=== PATIENT | female | born 1995 | race Caucasian/White ===

== ENCOUNTER 2017-03-31 22:58 | Emergency (ER) | payer OTHER ==
[~2017-03-31] VITALS: Ht 162.6 cm; Wt 68.4 kg
[~2017-03-31 22:58] MED LIST: BCPILLS PO
[2017-03-31 23:03] VITALS: TEMP 36.6; Ht 162.6 cm; Wt 68.4 kg
[2017-03-31] MEDS ORDERED: CEFTRIAXONE SOD INJ 1 GM ADDVIAL IV STA (23:46)
[2017-04-01] MEDS ORDERED: SEPTRA DS HOME PACK 1 EA VIAL PO ONE
[2017-04-01] MEDS ORDERED: CEPHALEXIN 500MG HOME PACK 1 EA BTL PO ONE
[2017-04-01 01:03] VITALS: BP 115/75; PULSE 80; O2SAT 95
[2017-04-01] MEDS ORDERED: CEPH500C PO (01:05)
[2017-04-01] MEDS ORDERED: SULF800T23 PO (01:05)
--- NOTE | 2017-04-01 03:45 | EMERGENCY ROOM VISIT NOTE ---
History Report prepared by Dustin: Pattie Wills Under the Supervision of: Dr. Dalton Guevara M.D. First contact with patient: 23:32 Chief Complaint: WOUND INFECTION Stated Complaint: INFECTION IN R ARM UNDER BRACE, BLISTERS,OOZING Nursing Triage Summary: pt states she scratched under a splint with a plastic knife, states "i thought i caused an infection but now i'm thinking it's a spider bite." reddened area with two small openings noted on right inner arm. pt states she was wearing a splint due to broken right hand. History of Present Illness The patient is a 21 year old female who presents to the Emergency Room with complaints of a persistent right arm wound infection that she first noticed on Thursday. She currently rates her discomfort as a 6/10 in severity. The patient reports that one week ago she broke her right hand and has been in a splint since then. She states that Thursday her arm felt itchy so she scratched the area with a plastic knife. The patient states that Thursday she took her splint off for a short amount of time and noticed two raised bumps with white heads on her forearm. She states that she attributed the areas to the brace rubbing. The patient states that today when she took her splint off she noticed yellow drainage and erythema to the area. Pt denies LOC, headache, fevers, chills, diaphoresis, visual changes, neck pain, chest pain, breathing difficulties, nausea, vomiting, abdominal pain, back pain, melena, hematochezia, urinary symptoms, numbness, weakness, lymphadenopathy, or other complaints. Source of History: patient Onset: Thursday Position: arm (right) Symptom Intensity: 6/10 Quality: other (wound infection) Timing: other (persistent) Note: Associated Symptoms: yellow drainage, erythema to area Review of Systems See HPI for pertinent positives and negatives. A total of ten systems were reviewed and were otherwise negative. Past Medical & Surgical Medical Problems: (1) No Known Active Medical Problems Family History Patient reports no known family medical history. Social History Smoking Status: Never Smoker Alcohol Use: none Marital Status: single Housing Status: lives with family Occupation Status: student Current/Historical Medications Scheduled Control Pills ( Control Pills), 1 TAB PO DAILY Cephalexin Monohydrate (Keflex), 500 MG PO QID Sulfa/Trimethoprim (Bactrim Ds 800MG/160MG), 1 TAB PO BID Allergies Coded Allergies: No Known Allergies (Unverified , 03/31/17) Physical Exam Vital Signs Date Time Temp Pulse Resp B/P (MAP) Pulse Ox O2 Delivery O2 Flow Rate FiO2 04/01/17 01:03 80 18 115/75 95 Room Air 03/31/17 23:03 36.6 82 20 135/81 100 Room Air Physical Exam GENERAL: Awake, alert, well-appearing, in no distress HENT: Normocephalic, atraumatic. Oropharynx unremarkable. EYES: Normal conjunctiva. Sclera non-icteric. NECK: Supple. No nuchal rigidity. FROM. No JVD. RESPIRATORY: Clear to auscultation. CARDIAC: Regular rate, normal rhythm. Extremities warm and well perfused. Pulses equal. MUSCULOSKELETAL: Chest examination reveals no tenderness. The back is symmetrical on inspection without obvious abnormality. There is no CVA tenderness to palpation. No joint edema. LOWER EXTREMITIES: Right upper extremity has an erythematous area to the mid forearm with two small ulcerations with some cloudy yellow drainage present. No Crepitus, no fluctuance, some streaking up toward antecubital fossa. NEURO: Normal sensorium. No sensory or motor deficits noted. SKIN: No rash or jaundice noted. Medical Decision & Procedures Medications Administered Medications (Trade) Dose Ordered Sig/Daivd Route Start Time Stop Time Status Last Admin Dose Admin Ceftriaxone Sodium (Rocephin Inj) 1 gm NOW STAT IV 03/31/17 23:46 03/31/17 23:48 DC 03/31/17 23:55 1 GM Cephalexin Monohydrate (Keflex 500MG Home Pack) 1 homepack NOW ONCE PO 04/01/17 00:00 04/01/17 00:01 DC 04/01/17 01:17 1 HOMEPACK Trimethoprim/ Sulfamethoxazole (Sulfameth/ Trimeth Ds 800/ 160MG Home Pack) 1 homepack UD ONCE PO 04/01/17 00:00 04/01/17 00:01 DC 04/01/17 01:17 1 HOMEPACK ED Course 2341: The patient was evaluated in room A4B. A complete history and physical exam was performed. 2346: Ordered Rocephin Inj 1 gm IV. 0000: Ordered Trimethoprim/Sulfamethoxazole 1 homepack PO, Cephalexin Monohydrate 1 homepack PO. 0111: I reevaluated the patient and she is resting comfortably. I discussed the exam findings with her and I discussed the treatment plan. She verbalized complete understanding and agreement. She is ready to go home. Medical Decision Medication Reconciliation: I attest that I have personally reviewed the patient' s current medication list Prior records reviewed and summarized as above. Triage Nursing notes reviewed and agree them. Additional history obtained from the patient's friend. The patient's history was concerning for swelling and redness of the skin. Differential diagnosis: Etiologies such as cellulitis, necrotizing fasciitis, abscess, MRSA infection, dermatitis, drug eruption, as well as others were entertained.. Physical examination: The physical examination was consistent with cellulitis ER treatment provided: IV Rocephin bacitracin and bandage On reassessment the patient felt better. Diagnostics interpreted by me: Deferred This appears to be isolated cellulitis. Wound culture was sent. The patient will be treated with Bactrim and Keflex. If she worsens she will come back.I gave my usual and customary discussion regarding this issue. By the evaluation outlined above emergent etiologies such as abscess, necrotizing fasciitis, DVT, as well as others were deemed relatively unlikely. The patient was informed about the findings as listed above. All questions were answered and she was pleased with the treatment. Return instructions were outlined and the patient was discharged in stable condition. Outpatient prescription management: Bactrim and Keflex Referral: The patient was referred back to her primary care physician for follow-up in 2 to 3 days for a recheck of the current condition. Impression Primary Impression: Cellulitis Scribe Attestation The scribe's documentation has been prepared under my direction and personally reviewed by me in its entirety. I confirm that the note above accurately reflects all work, treatment, procedures, and medical decision making performed by me. Departure Information Dispostion Home / Self-Care Prescriptions Sulfa/Trimethoprim (Bactrim Ds 800MG/160MG) Tab 1 TAB PO BID, #18 TAB Prov: Dalton Guevara MD 04/01/17 Cephalexin Monohydrate (Keflex) 500 Mg Cap 500 MG PO QID, #36 CAP Prov: Dalton Guevara MD 04/01/17 Referrals No Doctor, Assigned (PCP) Patient Instructions [facility]
== END 2017-04-01 01:19 | disposition home or self-care (01) ==
LOC: C.EDB 22:59 → C.EDA 04-01 01:19
DX: L03.113 Cellulitis of right upper limb (principal); S62.91XD Unspecified fracture of right hand, subsequent encounter for fracture with routine healing; X58.XXXD Exposure to other specified factors, subsequent encounter; Z79.3 Long term (current) use of hormonal contraceptives

== ENCOUNTER 2021-07-11 08:00 | Inpatient (IN) ==
[2021-07-11] MEDS ORDERED: OXYTOCIN 30 UNITS/500 ML BAG IV PRN ×2 (08:33)
[2021-07-11 09:02] LABS: Hematocrit (blood only) 38.6 % (37-47); Hemoglobin 13.3 g/dL (12.0-16.0); Mean Corpuscular Hemoglobin 31.1 pg (25-34); Mean Corpuscular Hgb Conc 34.5 g/dL (32-36); Mean Corpuscular Volume 90.2 fL (80-100); Mean Platelet Volume 11.4 fL (7.4-10.4); Platelet Count 218 K/uL (130-400); RDW Coefficient of Variation 13.1 % (11.5-14.5); RDW Standard Deviation 42.8 fL (36.4-46.3); Red Blood Count 4.28 M/uL (4.2-5.4); White Blood Count 11.43 K/uL (4.8-10.8)
[2021-07-11] MEDS: LACTATED RINGER'S 1,000 ML IV PRN ×3 (10:35→21:16)
--- NOTE | 2021-07-11 14:20 | History & Physical Report ---
Date of Service July 11, 2021 Assessment & Plan (1) Encounter for induction of labor: Plan: 26 at 40.4 wga here for scheduled induction -admit to L&D -IVFs (LR at 125 mls/hr; Pitocin at 20 units/hr) -NPO -pain controlled on epidural -GBS-/RI/Rh+ -anticipate (2) Supervision of normal first : Admission and Anticipated Discharge Date Admission Date: July 11, 2021 History of Present Illness Primary Care Provider: Darleen Du MD Geno Guajardo is a 26 y/o female currently at 40.4 WGA with an FITZ 07/07/21 as determined by Ultrasound who is here for induction. + contractions; + movement; - fluid loss; - bloody show. + epidural. ROS otherwise negative. Had regular appointments with OB. Labs: (07/11/21) Blood type: A positive Antibody screen: negative H.3 (today) Hct: 38.6 (today) WBC: 11.43 (today) Plt: 218 (today) Rubella: immune RPR: nonreactive Gonorrhea: not detected Chlamydia: not detected HIV: negative HbSAg: negative GBS: negative Allergies Allergy/AdvReac Type Severity Reaction Status Date / Time No Known Allergies Allergy Mild Verified 07/09/21 13:13 Home Medications Medication Instructions Recorded Confirmed Type prenat.vits,isidoro,[id number] 1 tab PO DAILY 11/12/20 07/11/21 History Patient History Medical History (Updated 07/11/21 @ 14:52 by Stevie Al MD) Cellulitis Finger laceration Finger laceration Varicella vaccination Work related injury Surgical History (Updated 11/12/20 @ 09:55 by Bria Puente) S/P loop electrosurgical excision procedure Family History Grandfather (Maternal) Myocardial infarction Grandmother (Paternal) Gestational diabetes Denies family history of Ovarian cancer Breast cancer Colorectal cancer Social History (Updated 03/12/21 @ 15:00 by Abigail Gunter) Smoking Status: Never smoker Hx Alcohol Use: No Hx Substance Use: No Preferred Language: Dominican Visual Impairment: No Limitations Hearing Ability: Normal Show Design Supervisor Required: No Beliefs That Will Affect Care: None marital status: marital status details: Burke Guajardo (28) [phone] Current Living Situation: Spouse Current Living Situation Comment: lives with spouse, 2 dogs current occupational status: employed 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 No acute distress. +epidural Cardiac: Regular rate and rhythm, no murmurs/rubs/gallops. Respiratory: Clear to auscultation bilaterally a/p, no wheezes/rales/rhonchi. No increased work of breathing. Symmetrical chest rise. No respiratory distress. Pelvic: Dilation 2 cm; Effacement 100%; Station -[address] Jacob. Lower Extremities: No lower extremity edema or swelling. No deep calf pain. Annabel's negative bilaterally Baseline: 145 bpm Variability: moderate Accelerations: yes Decelerations: none Results & Data ([facility]) Vital Signs (Past 12 Hours) Vital Signs Temp Pulse Resp BP 07/11/21 13:36 88 120/64 07/11/21 12:36 90 131/83 07/11/21 10:36 81 133/81 07/11/21 09:31 36.7 C 19 07/11/21 08:10 36.7 C 90 19 139/84 Code Status & VTE Plan VTE Prophylaxis Plan VTE Prophylaxis will be ordered: Yes Resident Activity Tracking Resident Involvement: Resident Care Provided Care Provided: OB Delivery
[2021-07-11] MEDS ORDERED: Influenza Vaccine (Fluarix) 0.5 ML SYR (Standard Dose) IM ONE (14:30)
--- NOTE | 2021-07-11 14:46 | Procedure Note ---
Procedure Note Date of Service July 11, 2021 Note Delayed documentation from 0900 this morning: monitoring was used to ensure reassuring status. The patient was verbally consented for placement of a black for cervical ripening, with discussion of risks, benefits and alternatives. All her questions were answered. Her legs were placed in lithotomy position. A lubricated, gloved hand was used to examine the cervix. A stylet was lubricated and inserted into a black catheter to give it stiffness, and the black catheter was then advanced along my fingers until it reached the external cervical os. The black was then fed forward off of the stylet, which was itself never moved beyond the external os, such that the soft catheter advanced into the uterine cavity outside of the amnion until the balloon was definitely above the internal cervical os. The balloon was then inflated using sterile water to 30cc volume. Gentle traction was used to seat the balloon downward against the internal cervical os. My hand and the stylet were removed from the vagina, and the black was secured to the patient's leg with a standard black holding sticker. There was no significant bleeding or leakage of fluid. The heart tones remained reassuring after this process, which the patient tolerated well. Coding CPT Codes Misx Procedure Codes - 29614 Placement of cervical dilator: 48332 Placement of cervical dilator ([id number]) [facility] [place] Codes (Charges) Misx Procedure Codes 59879 Placement of cervical dilator
[2021-07-11] MEDS ORDERED: fentaNYL citrate 100 MCG/2 ML VIAL ONE (15:12)
[2021-07-11] MEDS ORDERED: ePHEDrine sulfate 50 MG/ML AMP ONE (15:12)
[2021-07-11] MEDS ORDERED: SODIUM CHLORIDE 0.9% INJ 10 ML VIAL ONE (15:12)
[2021-07-11] MEDS ORDERED: BUPIVACAINE 0.25% 30 ML VIAL ONE (15:12)
[2021-07-11] MEDS ORDERED: fentaNYL 2MCG/ML ROPIVACAINE 1.25MG/ML 100 ML BAG EPI ONE (15:13)
--- NOTE | 2021-07-11 15:27 | Anesthesiology Consultation ---
Date of Service July 11, 2021 Assessment & Plan (1) Encounter for pre-operative examination: Chart Review Chart Review: Acceptable Risk for Labor Epidural Consults Requested none ASA ASA2 Proposed Anesthesia Anesthesia Type: Labor Epidural Risk / Benefits Reviewed With: PT / POA / Parent / Guardian, Accepts Plan and Informed Consent Obtained History Height/Weight Height: 5 ft 4 in Weight: 81.478 kg Allergies Allergy/AdvReac Type Severity Reaction Status Date / Time No Known Allergies Allergy Mild Verified 07/09/21 13:13 Medications Home Medications Medication Instructions Recorded Confirmed Last Taken prenat.vits,isidoro,[id number] 1 tab PO DAILY 11/12/20 07/11/21 07/11/21 06:00 Active Medications Generic Name Dose Route Start Last Admin Trade Name Freq PRN Reason Stop Dose Admin Oxytocin 30 units in 500 mls @ 7 mls/hr 07/11/21 08:33 07/11/21 13:49 Pitocin IV 07/13/21 08:32 0.42 units/hr .Q24H PRN 7 mls/hr Labor Induction/Augmentation Titration Protocol 0.42 UNITS/HR Lactated Ringer's 1,000 mls @ 125 mls/hr 07/11/21 08:33 07/11/21 14:59 Lr IV 07/13/21 08:32 125 mls/hr .Q8H PRN Administration L&D Protocol Protocol Past Medical History Medical History Cellulitis Finger laceration Finger laceration Varicella vaccination Work related injury Exercise / Class Metabolic Activity II 4-5 Yardwork/Stairs/Walk up hill Past Family History Family History Grandfather (Maternal) Myocardial infarction Grandmother (Paternal) Gestational diabetes Denies family history of Ovarian cancer Breast cancer Colorectal cancer Past Surgical History Surgical History S/P loop electrosurgical excision procedure Past Anesthesia History No Hx of Anesthesia Complications and No Family Hx of Anesthesia Complications History of PONV No Hx of PONV and No Hx of Motion Sickness Social History Smoking Status: Never smoker Hx Alcohol Use: No Hx Substance Use: No Physical Exam Vital Signs Last Vital Signs Temp 98.1 F 07/11/21 09:31 Pulse 93 H 07/11/21 15:18 Resp 19 07/11/21 09:31 BP 120/64 07/11/21 13:36 Pulse Ox 97 07/11/21 15:18 ENMT Mouth: no dentition abnormality Thyromental Distance: > or= 3.5 Finger Breadths Mallampati Class: II Neck normal visual inspection Respiratory normal respiratory effort Auscultation: lungs clear to auscultation bilaterally Cardiovascular Rate/Rhythm: regular rate and regular rhythm Testing Laboratory Results 07/11/21 08:46
[2021-07-11] MEDS ORDERED: NALOXONE HCL 1 MG in SODIUM CHLORIDE 0.9% 1000ML 1,000 ML IV PRN (15:49)
[2021-07-11] MEDS ORDERED: diphenhydrAMINE 50 MG/ML VIAL IV PRN (15:49)
[2021-07-11] MEDS ORDERED: NALBUPHINE HCL INJ 10 MG/ML AMP IV PRN (15:49)
[2021-07-11] MEDS ORDERED: NALOXONE HCL 0.4 MG/1 ML VIAL/CARP IV PRN (15:49)
[2021-07-11] MEDS ORDERED: ONDANSETRON INJ 2 MG/ML 2 ML VIAL IV PRN (15:49)
[2021-07-11] MEDS ORDERED: fentaNYL 2MCG/ML ROPIVACAINE 1.25MG/ML 100 ML BAG EPI PRN (15:49)
[2021-07-11] MEDS ORDERED: ePHEDrine sulfate 50 MG/ML AMP IV PRN (15:49)
--- NOTE | 2021-07-11 16:17 | Labor Progress Brief Note ---
Date of Service July 11, 2021 Subjective Comfortable with epidural Assessment & Plan Admission and Anticipated Discharge Date Admission Date: July 11, 2021 Physical Exam Physical Exam: 4/100/-2 AROM light mec FHT Cat 1 [place] Q3 Pit @ 9 Results & Data ([facility]) Vital Signs (Past 12 Hours) Vital Signs Temp Pulse Resp BP Pulse Ox 07/11/21 16:12 94 H 100 07/11/21 16:07 88 98 07/11/21 16:06 83 117/70 07/11/21 16:02 91 H 98 07/11/21 15:57 87 97 07/11/21 15:55 94 H 118/67 07/11/21 15:53 89 114/65 07/11/21 15:52 94 H 123/70 97 07/11/21 15:50 90 117/69 07/11/21 15:48 91 H 120/67 07/11/21 15:47 86 94 07/11/21 15:46 90 121/70 07/11/21 15:44 100 H 125/79 07/11/21 15:42 93 H 98 07/11/21 15:41 90 125/75 07/11/21 15:37 90 97 07/11/21 15:32 90 98 07/11/21 15:27 99 H 93 07/11/21 15:18 93 H 97 07/11/21 15:17 88 94 07/11/21 15:13 97 H 95 07/11/21 15:08 91 H 97 07/11/21 15:03 94 H 96 07/11/21 13:36 88 120/64 07/11/21 12:36 90 131/83 07/11/21 10:36 81 133/81 07/11/21 09:31 98.1 F 19 07/11/21 08:10 98.1 F 90 19 139/84 Coding Level of Care Code None
--- NOTE | 2021-07-11 20:19 | Labor Progress Brief Note ---
Date of Service July 11, 2021 Subjective Feeling a lot of pressure Assessment & Plan (1) Encounter for induction of labor: Plan: Intermittent cat 2 strip but currently reassuring / appropriate for transition, anticipate beginning second stage soon. Admission and Anticipated Discharge Date Admission Date: July 11, 2021 Physical Exam Physical Exam: Recent exam anterior lip per RN Monserrat. FHT cat 1 with early decels, other than a time when maternal hr was traced during exam and straight cath done by RN just recently. [place] Q3 Pit @ 9 Results & Data ([facility]) Vital Signs (Past 12 Hours) Vital Signs Temp Pulse Resp BP Pulse Ox 07/11/21 20:13 87 99 07/11/21 20:08 86 100 07/11/21 20:07 82 124/80 07/11/21 20:03 89 98 07/11/21 20:02 110 H 92 07/11/21 19:58 88 99 07/11/21 19:53 89 98 07/11/21 19:52 96 H 118/66 07/11/21 19:48 84 100 07/11/21 19:43 79 99 07/11/21 19:38 84 115/58 L 99 07/11/21 19:33 81 100 07/11/21 19:30 98.1 F 18 07/11/21 19:28 98.1 F 75 18 99 07/11/21 19:23 80 99 07/11/21 19:22 85 167/67 H 90 07/11/21 19:17 83 99 07/11/21 19:12 90 98 07/11/21 19:08 84 127/75 07/11/21 19:07 93 H 99 07/11/21 19:02 81 99 07/11/21 18:57 76 99 07/11/21 18:52 88 143/74 H 98 07/11/21 18:47 95 H 100 07/11/21 18:42 96 H 99 07/11/21 18:37 78 100 07/11/21 18:36 73 133/70 07/11/21 18:34 98.1 F 18 07/11/21 18:32 84 100 07/11/21 18:27 81 124/68 99 07/11/21 18:22 84 100 07/11/21 18:17 82 126/70 100 07/11/21 18:12 78 100 07/11/21 18:07 88 124/74 100 07/11/21 18:02 93 H 100 07/11/21 17:57 94 H 122/70 100 07/11/21 17:52 78 100 07/11/21 17:48 80 122/64 07/11/21 17:47 77 100 07/11/21 17:42 89 99 07/11/21 17:37 81 99 07/11/21 17:36 80 122/64 07/11/21 17:32 77 100 07/11/21 17:27 85 99 07/11/21 17:26 84 125/67 07/11/21 17:22 81 100 07/11/21 17:17 94 H 122/68 100 07/11/21 17:12 79 100 07/11/21 17:07 80 100 07/11/21 17:06 78 127/68 07/11/21 17:02 88 99 07/11/21 16:57 86 100 07/11/21 16:56 87 119/72 07/11/21 16:52 84 100 07/11/21 16:47 89 122/72 100 07/11/21 16:42 84 100 07/11/21 16:37 80 100 07/11/21 16:36 85 125/69 07/11/21 16:32 79 100 07/11/21 16:27 81 100 07/11/21 16:26 79 127/72 07/11/21 16:22 78 100 07/11/21 16:17 82 99 07/11/21 16:16 75 131/72 07/11/21 16:15 98.1 F 19 07/11/21 16:12 94 H 100 07/11/21 16:07 88 98 07/11/21 16:06 83 117/70 07/11/21 16:02 91 H 98 07/11/21 15:57 87 97 07/11/21 15:55 94 H 118/67 07/11/21 15:53 89 114/65 07/11/21 15:52 94 H 123/70 97 07/11/21 15:50 90 117/69 07/11/21 15:48 91 H 120/67 07/11/21 15:47 86 94 07/11/21 15:46 90 121/70 07/11/21 15:44 100 H 125/79 07/11/21 15:42 93 H 98 07/11/21 15:41 90 125/75 07/11/21 15:37 90 97 07/11/21 15:32 90 98 07/11/21 15:27 99 H 93 07/11/21 15:18 93 H 97 07/11/21 15:17 88 94 07/11/21 15:13 97 H 95 07/11/21 15:08 91 H 97 07/11/21 15:03 94 H 96 07/11/21 13:36 88 120/64 07/11/21 12:36 90 131/83 07/11/21 10:36 81 133/81 07/11/21 09:31 98.1 F 19 Coding Level of Care Code None Diagnoses Encounter for induction of labor Z34.90
--- NOTE | 2021-07-11 22:48 | Delivery Summary ---
Vaginal Delivery Summary Date of Service July 11, 2021 Vaginal Delivery Summary DIAGNOSES: 1. Amaro intrauterine at 40w4d gestation. 2. Induction of Labor. 3. Group B Streptococcus Neg. PROCEDURE: Spontaneous vaginal delivery and repair of left labial laceration. SURGEON: Shanice Jacob MD. SPECIAL EDUCATION CASE MANAGER: None. ESTIMATED BLOOD LOSS: 350 mL. COMPLICATIONS: None. PLACENTA: Spontaneous and intact with a 3-vessel cord. DISPOSITION: Stable to labor and delivery. DESCRIPTION: The patient pushed well and brought the head to in DOA position. The 's head was allowed to deliver with contraction force and no further active pushing, with the perineum protected during this time. There was no nuchal cord. The left shoulder was anterior. The shoulders and body delivered without any difficulty, and the was placed on the maternal abdomen. It was not immediately vigorous and the parents were informed it would be taken to the warmer for resuscitation; the cord was doubly clamped by the MD and then quickly cut by the FOB, and the baby was moved directly to the warmer. The placenta delivered spontaneously and was noted to be intact and with a 3VC. The cervix, vagina and perineum were examined and were found to be without defect requiring repair, though a laceration was noted to the left side of the clitoris extending into the left labium minus ending near (but not in) the urethral meatus. It was hemostatic but for cosmetic reasons needed to be reapproximated. This was closed using 3-0 vicryl in a running locked manner. The fundus was firm and lochia minimal immediately after delivery. [facility] Vaginal Delivery Charge Vaginal Delivery Codes: 67370 global code for the antepartum, delivery, and post-
[2021-07-11] MEDS ORDERED: DIPHTHERIA/TETANUS/PERTUSSIS 0.5 ML SYR/VIAL IM ONE (23:00)
[2021-07-11] MEDS ORDERED: HYDROCORTISONE ACETATE 25 MG SUPP PR PRN (23:00)
[2021-07-11] MEDS ORDERED: BENZOCAINE 20% AER SPR 82.5 GM CAN EXT PRN (23:00)
[2021-07-11] MEDS ORDERED: oxyCODONE/ACETAMINOPHEN 5mg/325mg TAB PO PRN (23:00)
[2021-07-11] MEDS ORDERED: SUPERCREAM 0.870% 15 GM JAR EXT PRN (23:00)
[2021-07-11] MEDS ORDERED: ACETAMINOPHEN 325 MG TAB PO PRN (23:00)
[2021-07-12] MEDS: IBUPROFEN 600 MG TAB PO PRN ×5 (00:01→21:15)
--- NOTE | 2021-07-12 06:23 | Obstetrical Progress Note ---
Date of Service <Stevie Al MD - Last Filed: 07/12/21 07:13> July 12, 2021 Assessment & Plan <Stevie Al MD - Last Filed: 07/12/21 07:13> (1) Encounter for care and examination after delivery: PPD1: stable; routine management * ambulating, voiding w/o difficulty * tolerating regular diet * likely increased pain control requirement today * continue attempt at * observe today; assess d/c readiness tomorrow AM <Shanice Jacob MD - Last Filed: 07/12/21 07:13> (1) Encounter for care and examination after delivery: Subjective <Stevie Al MD - Last Filed: 07/12/21 07:13> Geno is a 26 y/o female who is now PPD 1 following spontaneous vaginal delivery at 40+ weeks. Reports feeling well overall this morning. Minimal abdominal cramping & 0/10 this AM. Voiding +. Tolerating meals well and able to ambulate some. + passing gas but no bowel movements. Some persistent lochia (2 filled pads overnight) with improvement this morning. . Review of Systems Denies fever, chills, sweats Denies shortness of breath, difficulty breathing, chest pain, palpitations, chest pressure. Denies breast pain. Denies dysuria. Denies headache or changes in vision Physical Exam <Stevie Al MD - Last Filed: 07/12/21 07:13> General: Alert, oriented. No acute distress. Cardiac: Regular rate and rhythm, no murmurs/rubs/gallops. Respiratory: Clear to auscultation bilaterally a/p, no wheezes/rales/rhonchi. No increased work of breathing. Symmetrical chest rise. No respiratory distress. Abdomen: Soft, nontender, nondistended. Bowel sounds present. Uterus: Uterine fundus firm, palpable 1 cm below umbilicus. Lower Extremities: No lower extremity edema or swelling. No deep calf pain. Annabel's negative bilaterally.. Results & Data ([facility]) <Stevie Al MD - Last Filed: 07/12/21 07:13> Vital Signs (Past 12 Hours) Vital Signs Temp Pulse Pulse Resp BP BP Pulse Ox 07/12/21 05:00 36.6 C 79 18 115/72 07/12/21 01:30 36.6 C 84 18 127/78 07/12/21 00:50 89 126/72 07/12/21 00:45 18 07/12/21 00:35 87 127/73 07/12/21 00:20 95 H 141/82 H 07/12/21 00:15 18 07/12/21 00:05 85 135/68 07/11/21 23:50 87 136/66 07/11/21 23:35 92 H 137/62 07/11/21 23:17 105 H 134/84 07/11/21 23:15 18 07/11/21 23:01 100 H 131/76 07/11/21 23:00 18 07/11/21 22:46 97 H 135/68 07/11/21 22:45 36.9 C 18 07/11/21 22:40 103 H 94 07/11/21 22:37 100 H 134/60 07/11/21 22:36 99 H 94 07/11/21 22:34 94 H 93 07/11/21 22:31 116 H 95 07/11/21 22:26 120 H 95 07/11/21 22:13 137 H 94 07/11/21 22:12 135 H 93 07/11/21 22:08 139 H 94 07/11/21 22:07 115 H 124/61 94 07/11/21 22:03 122 H 96 07/11/21 21:58 129 H 92 07/11/21 21:56 117 H 93 07/11/21 21:53 120 H 96 07/11/21 21:52 125 H 127/64 07/11/21 21:51 120 H 92 07/11/21 21:48 115 H 83 L 07/11/21 21:44 112 H 91 07/11/21 21:43 112 H 97 07/11/21 21:38 133 H 96 07/11/21 21:33 103 H 97 07/11/21 21:28 123 H 97 07/11/21 21:23 129 H 99 07/11/21 21:18 80 98 07/11/21 21:13 84 99 07/11/21 21:08 79 99 07/11/21 21:07 87 132/87 07/11/21 21:03 84 99 07/11/21 21:00 18 07/11/21 20:58 81 98 07/11/21 20:53 78 135/80 99 07/11/21 20:48 79 100 07/11/21 20:43 84 99 07/11/21 20:38 79 114/56 L 99 07/11/21 20:33 84 100 07/11/21 20:30 18 07/11/21 20:28 79 100 07/11/21 20:23 81 100 07/11/21 20:22 81 123/66 07/11/21 20:18 82 100 07/11/21 20:14 92 H 90 07/11/21 20:13 87 99 07/11/21 20:08 86 100 07/11/21 20:07 82 124/80 07/11/21 20:03 89 98 07/11/21 20:02 110 H 92 07/11/21 20:00 18 07/11/21 19:58 88 99 07/11/21 19:53 89 98 07/11/21 19:52 96 H 118/66 07/11/21 19:48 84 100 07/11/21 19:43 79 99 07/11/21 19:38 84 115/58 L 99 07/11/21 19:33 81 100 07/11/21 19:30 36.7 C 18 07/11/21 19:28 36.7 C 75 18 99 07/11/21 19:23 80 99 07/11/21 19:22 85 167/67 H 90 07/11/21 19:17 83 99 07/11/21 19:12 90 98 07/11/21 19:08 84 127/75 07/11/21 19:07 93 H 99 07/11/21 19:02 81 99 07/11/21 18:57 76 99 07/11/21 18:52 88 143/74 H 98 07/11/21 18:47 95 H 100 07/11/21 18:42 96 H 99 07/11/21 18:37 78 100 07/11/21 18:36 73 133/70 07/11/21 18:34 36.7 C 18 07/11/21 18:32 84 100 07/11/21 18:27 81 124/68 99 10/14/21 18:22 84 100 07/11/21 18:17 82 126/70 100 <Shanice Jacob MD - Last Filed: 07/12/21 07:13> Co-Signing Physician Notes Resident Physician Supervision Note: I interviewed and examined the patient. Discussed with Dr. Al and agree with findings and plan as documented in the note. Any exceptions or clarifications are listed here: None Documented By: Shanice Jacob MD, FACOG Resident Activity Tracking <Stevie Al MD - Last Filed: 07/12/21 07:13> Resident Involvement: Resident Care Provided Care Provided: OB Delivery
[2021-07-12 07:15] LABS: Hematocrit (blood only) 35.3 % (37-47); Mean Corpuscular Hemoglobin 30.8 pg (25-34); Mean Corpuscular Volume 90.5 fL (80-100); Mean Platelet Volume 11.1 fL (7.4-10.4); Platelet Count 199 K/uL (130-400); RDW Standard Deviation 42.7 fL (36.4-46.3); White Blood Count 16.39 K/uL (4.8-10.8)
[2021-07-12] MEDS: PRENATAL VITAMIN 1 TAB PO SCH (08:38)
[2021-07-12] MEDS: DOCUSATE SODIUM 100 MG CAP PO SCH ×2 (08:38→21:15)
[2021-07-12] MEDS ORDERED: FLUARIX QUADRIVALENT 0.5 ML SYR IM ONE (09:00)
--- NOTE | 2021-07-12 09:05 | Anesthesiology Progress Note ---
Date of Service July 12, 2021 Anesthesia Post Procedure Vital Signs Vital Signs: Temp Pulse Pulse Resp BP BP Pulse Ox 07/12/21 08:11 36.8 C 81 20 122/78 99 07/12/21 05:00 36.6 C 79 18 115/72 07/12/21 01:30 36.6 C 84 18 127/78 07/12/21 00:50 89 126/72 07/12/21 00:45 18 07/12/21 00:35 87 127/73 07/12/21 00:20 95 H 141/82 H 07/12/21 00:15 18 07/12/21 00:05 85 135/68 07/11/21 23:50 87 136/66 07/11/21 23:35 92 H 137/62 07/11/21 23:17 105 H 134/84 07/11/21 23:15 18 07/11/21 23:01 100 H 131/76 07/11/21 23:00 18 07/11/21 22:46 97 H 135/68 07/11/21 22:45 36.9 C 18 07/11/21 22:40 103 H 94 07/11/21 22:37 100 H 134/60 07/11/21 22:36 99 H 94 07/11/21 22:34 94 H 93 07/11/21 22:31 116 H 95 07/11/21 22:26 120 H 95 07/11/21 22:13 137 H 94 07/11/21 22:12 135 H 93 07/11/21 22:08 139 H 94 07/11/21 22:07 115 H 124/61 94 07/11/21 22:03 122 H 96 07/11/21 21:58 129 H 92 07/11/21 21:56 117 H 93 07/11/21 21:53 120 H 96 07/11/21 21:52 125 H 127/64 07/11/21 21:51 120 H 92 07/11/21 21:48 115 H 83 L 07/11/21 21:44 112 H 91 07/11/21 21:43 112 H 97 07/11/21 21:38 133 H 96 07/11/21 21:33 103 H 97 07/11/21 21:28 123 H 97 07/11/21 21:23 129 H 99 07/11/21 21:18 80 98 07/11/21 21:13 84 99 07/11/21 21:08 79 99 07/11/21 21:07 87 132/87 07/11/21 21:03 84 99 07/11/21 21:00 18 07/11/21 20:58 81 98 07/11/21 20:53 78 135/80 99 07/11/21 20:48 79 100 07/11/21 20:43 84 99 07/11/21 20:38 79 114/56 L 99 07/11/21 20:33 84 100 07/11/21 20:30 18 07/11/21 20:28 79 100 07/11/21 20:23 81 100 07/11/21 20:22 81 123/66 07/11/21 20:18 82 100 07/11/21 20:14 92 H 90 07/11/21 20:13 87 99 07/11/21 20:08 86 100 07/11/21 20:07 82 124/80 07/11/21 20:03 89 98 07/11/21 20:02 110 H 92 07/11/21 20:00 18 07/11/21 19:58 88 99 07/11/21 19:53 89 98 07/11/21 19:52 96 H 118/66 07/11/21 19:48 84 100 07/11/21 19:43 79 99 07/11/21 19:38 84 115/58 L 99 07/11/21 19:33 81 100 07/11/21 19:30 36.7 C 18 07/11/21 19:28 36.7 C 75 18 99 07/11/21 19:23 80 99 07/11/21 19:22 85 167/67 H 90 07/11/21 19:17 83 99 07/11/21 19:12 90 98 07/11/21 19:08 84 127/75 07/11/21 19:07 93 H 99 07/11/21 19:02 81 99 07/11/21 18:57 76 99 07/11/21 18:52 88 143/74 H 98 07/11/21 18:47 95 H 100 07/11/21 18:42 96 H 99 07/11/21 18:37 78 100 07/11/21 18:36 73 133/70 07/11/21 18:34 36.7 C 18 07/11/21 18:32 84 100 07/11/21 18:27 81 124/68 99 07/11/21 18:22 84 100 07/11/21 18:17 82 126/70 100 07/11/21 18:12 78 100 07/11/21 18:07 88 124/74 100 07/11/21 18:02 93 H 100 07/11/21 17:57 94 H 122/70 100 07/11/21 17:52 78 100 07/11/21 17:48 80 122/64 07/11/21 17:47 77 100 07/11/21 17:42 89 99 07/11/21 17:37 81 99 07/11/21 17:36 80 122/64 07/11/21 17:32 77 100 07/11/21 17:27 85 99 07/11/21 17:26 84 125/67 07/11/21 17:22 81 100 07/11/21 17:17 94 H 122/68 100 07/11/21 17:12 79 100 07/11/21 17:07 80 100 07/11/21 17:06 78 127/68 07/11/21 17:02 88 99 07/11/21 16:57 86 100 07/11/21 16:56 87 119/72 07/11/21 16:52 84 100 07/11/21 16:47 89 122/72 100 07/11/21 16:42 84 100 07/11/21 16:37 80 100 07/11/21 16:36 85 125/69 07/11/21 16:32 79 100 07/11/21 16:27 81 100 07/11/21 16:26 79 127/72 07/11/21 16:22 78 100 07/11/21 16:17 82 99 07/11/21 16:16 75 131/72 07/11/21 16:15 36.7 C 19 07/11/21 16:12 94 H 100 07/11/21 16:07 88 98 07/11/21 16:06 83 117/70 07/11/21 16:02 91 H 98 07/11/21 15:57 87 97 07/11/21 15:55 94 H 118/67 07/11/21 15:53 89 114/65 07/11/21 15:52 94 H 123/70 97 07/11/21 15:50 90 117/69 07/11/21 15:48 91 H 120/67 07/11/21 15:47 86 94 07/11/21 15:46 90 121/70 07/11/21 15:44 100 H 125/79 07/11/21 15:42 93 H 98 07/11/21 15:41 90 125/75 07/11/21 15:37 90 97 07/11/21 15:32 90 98 07/11/21 15:27 99 H 93 07/11/21 15:18 93 H 97 07/11/21 15:17 88 94 07/11/21 15:13 97 H 95 07/11/21 15:08 91 H 97 07/11/21 15:03 94 H 96 07/11/21 13:36 88 120/64 07/11/21 12:36 90 131/83 07/11/21 10:36 81 133/81 07/11/21 09:31 36.7 C 19 Pain Intensity Bilateral Episiotomy/Laceration: Pain Intensity: 2 Transfer of Care Handoff Completed per policy Notes Mental Status: alert / awake / arousable and participated in evaluation Patient Amnestic to Procedure: Yes Nausea / Vomiting: adequately controlled Pain: adequately controlled Airway Patency, RR, SpO2: stable & adequate BP & HR: stable & adequate Hydration State: stable & adequate Anesthetic Complications: no major complications apparent and Pt Satisfied with anesthetic care
[2021-07-13 06:17] LABS: Hematocrit (blood only) 35.2 % (37-47); Hemoglobin 11.8 g/dL (12.0-16.0)
--- NOTE | 2021-07-13 07:18 | Obstetrical Progress Note ---
Date of Service <Stevie Al MD - Last Filed: 07/13/21 07:50> July 13, 2021 Assessment & Plan <Stevie Al MD - Last Filed: 07/13/21 07:50> (1) Encounter for care and examination after delivery: PPD1: stable; routine management * ambulating, voiding w/o difficulty * pain continues to be well controlled on analgesia * continue attempt at * d/c today * 6-wk OB outpt f/u <Monserrat Crocker MD, FACOG - Last Filed: 07/13/21 07:51> (1) Encounter for care and examination after delivery: Subjective <Stevie Al MD - Last Filed: 07/13/21 07:50> Geno is a 26 y/o female who is now PPD 2 following spontaneous vaginal delivery at 40 weeks. Was standing over baby, as she attempted to feed her with syringe. Pain well managed on analgesics. Voiding +. Tolerating meals well and able to ambulate some. Some lochia. (syringe). Review of Systems Denies fever, chills, sweats Denies shortness of breath, difficulty breathing, chest pain, palpitations, chest pressure. Denies breast pain. Denies dysuria. Denies headache or changes in vision Physical Exam <Stevie Al MD - Last Filed: 07/13/21 07:50> General: Alert, oriented. No acute distress. Cardiac: Regular rate and rhythm, no murmurs/rubs/gallops. Respiratory: Clear to auscultation bilaterally a/p, no wheezes/rales/rhonchi. No increased work of breathing. Symmetrical chest rise. No respiratory distress. Abdomen: Soft, nontender, nondistended. Bowel sounds present. Uterus: Uterine fundus firm, palpable 1 cm below umbilicus. Lower Extremities: No lower extremity edema or swelling. No deep calf pain. Annabel's negative bilaterally.. Results & Data ([facility]) <Stevei Al MD - Last Filed: 07/13/21 07:50> Vital Signs (Past 12 Hours) Vital Signs Temp Pulse Resp BP 07/12/21 23:45 36.9 C 71 18 113/72 07/12/21 19:50 36.8 C 90 18 115/71 <Monserrat Crocker MD, FACOG - Last Filed: 07/13/21 07:51> Co-Signing Physician Notes Resident Physician Supervision Note: I interviewed and examined the patient. Discussed with Dr. Hunter and agree with findings and plan as documented in the note. Any exceptions or clarifications are listed here: Doing well. Plan d/c. Instructions given. Documented By: Monserrat Crocker MD, FACOG Resident Activity Tracking <Steive Al MD - Last Filed: 07/13/21 07:50> Resident Involvement: Resident Care Provided Care Provided: OB Delivery
[2021-07-13] MEDS: IBUPROFEN 600 MG TAB PO PRN (08:51)
[2021-07-13] MEDS: PRENATAL VITAMIN 1 TAB PO SCH (08:52)
[2021-07-13] MEDS: DOCUSATE SODIUM 100 MG CAP PO SCH (08:52)
== END 2021-07-13 13:16 | disposition home or self-care (01) | DRG 807 ==
LOC: 4S1 08:00 → 4S2 07-12 01:36
DX: O48.0 Post-term pregnancy; Z3A.40 40 weeks gestation of pregnancy; Z23 Encounter for immunization; O77.0 Labor and delivery complicated by meconium in amniotic fluid; O76 Abnormality in fetal heart rate and rhythm complicating labor and delivery; Z37.0 Single live birth; O70.0 First degree perineal laceration during delivery

== ENCOUNTER 2024-05-30 07:30 | Inpatient (IN) ==
[2024-05-30] MEDS ORDERED: OXYTOCIN 30 UNITS/NSS 30 UNITS/500 ML BAG IV PRN (07:43)
[2024-05-30] MEDS ORDERED: LIDOCAINE 1% LOCAL 20 ML VIAL INFIL PRN (07:43)
[2024-05-30] MEDS: LACTATED RINGER'S 1,000 ML IV PRN (08:15)
[2024-05-30 08:18] LABS: Hematocrit (blood only) 34.4 % (37.0-47.0); Hemoglobin 11.9 g/dl (12.0-16.0); Mean Corpuscular Hemoglobin 30.9 pg (25.0-34.0); Mean Corpuscular Hgb Conc 34.6 g/dL (32.0-36.0); Mean Corpuscular Volume 89.4 fL (80.0-100.0); Mean Platelet Volume 10.6 fL (9.4-12.4); Platelet Count 171 K/uL (130-400); RDW Coefficient of Variation 13.2 % (11.5-14.5); Red Blood Count 3.85 M/uL (4.20-5.40); White Blood Count 8.88 K/ul (4.8-10.8)
[2024-05-30] MEDS: OXYTOCIN 30 UNITS/NSS 30 UNITS/500 ML BAG IV PRN ×2 (08:21→17:34)
[2024-05-30] MEDS: LIDOCAINE 2%/EPINEPHRINE 1:200,000 20 ML PF ONE (11:15)
[2024-05-30] MEDS: SODIUM CHLORIDE 0.9% PF INJ 10 ML VIAL ONE (11:15)
[2024-05-30] MEDS: BUPIVACAINE 0.25% PF 30 ML VIAL ONE (11:20)
[2024-05-30] MEDS: fentANYL 2 MCG/ML BUPIVacaine 0.125%-NSS 100ML BAG ONE (11:22)
[2024-05-30] MEDS ORDERED: ePHEDrine sulfate 50 MG/ML AMP IV PRN (11:35)
[2024-05-30] MEDS ORDERED: ROPIVACAINE 0.5% PF 5 MG/ML 20 ML VIAL EPI PRN (11:35)
[2024-05-30] MEDS ORDERED: fentANYL 2 MCG/ML BUPIVacaine 0.125%-NSS 100ML BAG EPI PRN (11:35)
[2024-05-30] MEDS ORDERED: BUPIVACAINE 0.25% PF 30 ML VIAL EPI PRN (11:35)
[2024-05-30] MEDS ORDERED: fentaNYL citrate PF 100 MCG/2 ML VIAL EPI PRN (11:35)
[2024-05-30] MEDS ORDERED: SODIUM CHLORIDE 0.9% PF INJ 10 ML VIAL EPI PRN (11:35)
[2024-05-30] MEDS ORDERED: ONDANSETRON INJ 2 MG/ML 2 ML VIAL IV PRN (11:35)
[2024-05-30] MEDS ORDERED: diphenhydrAMINE 50 MG/ML VIAL IV PRN (11:35)
[2024-05-30] MEDS: fentaNYL citrate PF 100 MCG/2 ML VIAL ONE (11:35)
[2024-05-30] MEDS ORDERED: NALBUPHINE HCL INJ 10 MG/ML AMP IV PRN (11:35)
[2024-05-30] MEDS ORDERED: NALOXONE HCL 0.4 MG/1 ML VIAL/CARP IV PRN (11:35)
[2024-05-30] MEDS ORDERED: NALOXONE HCL 1 MG in SODIUM CHLORIDE 0.9% 1,000 ML IV PRN (11:35)
[2024-05-30] MEDS ORDERED: LIDOCAINE 2% MPF LOCAL 5 ML VIAL EPI PRN (11:35)
--- NOTE | 2024-05-30 11:35 | Anesthesiology Consultation ---
Date of Service May 30, 2024 Assessment & Plan Chart Review Chart Review: Patient NOT seen in Pre Admission Testing and Acceptable Risk for Labor Epidural Consults Requested none ASA ASA2 Proposed Anesthesia Anesthesia Type: Labor Epidural Risk / Benefits Reviewed With: PT / POA / Parent / Guardian, Accepts Plan and Informed Consent Obtained History Height/Weight Height: 5 ft 4 in Weight: 79.492 kg Allergies Allergy/AdvReac Type Severity Reaction Status Date / Time No Known Allergies Allergy Mild Verified 05/27/24 10:31 Medications Home Medications Medication Instructions Recorded Confirmed Last Taken vits no.124-ferrous fum 1 tab PO DAILY 05/30/24 05/30/24 05/29/24 08:00 27 mg iron-folic acid 800 mcg tablet ( Vitamin) Active Medications Generic Name Dose Route Start Last Admin Trade Name Freq PRN Reason Stop Dose Admin Lactated Ringer's 1,000 mls @ 125 mls/hr 05/30/24 07:43 05/30/24 11:10 Lr IV 06/01/24 07:42 125 mls/hr .Q8H PRN Administration L&D Protocol Protocol Oxytocin 30 units in 500 mls @ 12 mls/hr 05/30/24 07:57 05/30/24 11:02 Pitocin 30 Units/Nss IV 06/01/24 07:56 0.72 units/hr .Q24H PRN 12 mls/hr Labor Induction/Augmentation Titration Protocol 0.72 UNITS/HR Past Medical History Medical History anxiety Encounter for pre-operative examination Varicella vaccination Work related injury Finger laceration Finger laceration Cellulitis Exercise / Class Metabolic Activity II 4-5 Yardwork/Stairs/Walk up hill Past Family History Family History Grandfather (Maternal) Myocardial infarction Grandmother (Paternal) Gestational diabetes Grandfather (Paternal) Prostate cancer Aunt Heart disease Uncle Heart disease Denies family history of Ovarian cancer Breast cancer Colorectal cancer Past Surgical History Surgical History S/P loop electrosurgical excision procedure Past Anesthesia History No Hx of Anesthesia Complications and No Family Hx of Anesthesia Complications History of PONV No Hx of PONV and No Hx of Motion Sickness Social History Smoking Status: Never smoker Do You Dip or Chew Tobacco: No Hx Alcohol Use: No Hx Substance Use: No substance use type: does not use Physical Exam Vital Signs Last Vital Signs Temp 37 C 05/30/24 11:08 Pulse 91 H 05/30/24 11:32 Resp 20 05/30/24 11:08 BP 101/63 05/30/24 11:32 Pulse Ox 100 05/30/24 11:28 ENMT Mouth: no dentition abnormality Thyromental Distance: > or= 3.5 Finger Breadths Mallampati Class: II Neck normal visual inspection Respiratory normal respiratory effort Auscultation: lungs clear to auscultation bilaterally Cardiovascular Rate/Rhythm: regular rate and regular rhythm Psychiatric Orientation: alert Testing Laboratory Results 05/30/24 07:56
--- NOTE | 2024-05-30 15:32 | History & Physical Report ---
Date of Service May 30, 2024 Assessment & Plan (1) Encounter for supervision of normal in multigravida: Plan: Geno is a 28-year-old G3, P1 currently at 40 weeks 1 day gestational age presents for elective induction of labor. Category 1 tracing. Start induction with Pitocin will AROM when appropriate. Vitals within normal limits. GBS negative Admission and Anticipated Discharge Date Admission Date: May 30, 2024 History of Present Illness Primary Care Provider: Darleen Du MD Geno is a 28-year-old G3, P1 currently at 40 weeks 1 day gestational age presents for elective induction of labor. has been uncomplicated to date. OB Labs: Blood Type A Positive 10/28/23 Antibody Screen NEGATIVE 10/28/23 Hemoglobin 11.6 g/dl (12.0-16.0) L 03/09/24 Hematocrit 33.9 % (37.0-47.0) L 03/09/24 Mean Corpuscular Volume 86.8 fL (80.0-100.0) 10/28/23 Platelet Count 295 K/uL (130-400) 10/28/23 Rubella IgG Antibody Immune (Immune) 10/28/23 Rapid Plasma Reagin Nonreactive (Nonreactive) 03/09/24 Hepatitis B Surface Antigen Neg (Neg) 11/19/20 Hepatitis B Surface Antigen. NON-REACTIVE (NON-REACTIVE) 10/28/23 Hepatitis C Antibody (EIA) NON-REACTIVE (NON-REACTIVE) 10/28/23 HIV (1&2) Ab and P24 Ag, 4th Gener Neg (Neg) 11/19/20 HIV (1&2) Ag and Ab Confirmation NON-REACTIVE (NON-REACTIVE) 10/28/23 Glucose 1 Hour 50 gm Load 171 mg/dl (70-130) H 03/09/24 Maternal Serum Alpha Fetoprotein 21.7 ng/mL 12/15/23 OB Optional Labs: Chlamydia trachomatis RNA Not Detected (NotDetected) 10/28/23 Neisseria gonorrhoeae RNA Not Detected (NotDetected) 10/28/23 Alpha Fetoprotein Triple Screen SEE NOTE 12/15/23 Labs Reviewed: declined cf/sma cfdna-low risk--mln neg afp--akh gbs neg--akh Allergies Allergy/AdvReac Type Severity Reaction Status Date / Time No Known Allergies Allergy Mild Verified 05/27/24 10:31 Home Medications Medication Instructions Recorded Confirmed Type vits no.124-ferrous fum 1 tab PO DAILY 05/30/24 05/30/24 History 27 mg iron-folic acid 800 mcg tablet ( Vitamin) Patient History Medical History anxiety Encounter for pre-operative examination Varicella vaccination Work related injury Finger laceration Finger laceration Cellulitis Surgical History S/P loop electrosurgical excision procedure Family History Grandfather (Maternal) Myocardial infarction Grandmother (Paternal) Gestational diabetes Grandfather (Paternal) Prostate cancer Aunt Heart disease Uncle Heart disease Denies family history of Ovarian cancer Breast cancer Colorectal cancer Social History (Updated 05/30/24 @ 07:46 by Bethanie Baez RN) Smoking Status: Never smoker Second Hand Exposure: No; Do You Dip or Chew Tobacco: No; Hx Alcohol Use: No Hx Substance Use: No Preferred Language: Indonesian Communication Ability: Effective Visual Impairment: No Limitations Hearing Ability: Normal Selling Manager Required: No Beliefs That Will Affect Care: None marital status: marital status details: Burke Guajardo (31) [phone] Current Living Situation: Spouse and Family Current Living Situation Comment: lives with spouse, child, 2 dogs current occupational status: employed 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 Tee Results & Data Vital Signs (Past 12 Hours) Vital Signs Temp Pulse Resp BP Pulse Ox 05/30/24 15:23 100 05/30/24 15:23 85 05/30/24 15:18 100 05/30/24 15:18 77 05/30/24 15:17 87 05/30/24 15:17 110/56 L 05/30/24 15:13 100 05/30/24 15:13 81 05/30/24 15:08 100 05/30/24 15:08 73 05/30/24 15:05 36.5 C 20 05/30/24 15:04 74 05/30/24 15:04 110/58 L 05/30/24 15:03 100 05/30/24 15:03 72 05/30/24 14:58 100 05/30/24 14:58 79 05/30/24 14:53 100 05/30/24 14:53 83 05/30/24 14:49 76 05/30/24 14:49 115/61 05/30/24 14:48 100 05/30/24 14:48 76 05/30/24 14:43 100 05/30/24 14:43 72 05/30/24 14:38 100 05/30/24 14:38 76 05/30/24 14:34 75 05/30/24 14:34 107/62 05/30/24 14:33 100 05/30/24 14:33 74 05/30/24 14:28 100 05/30/24 14:28 74 05/30/24 14:23 100 05/30/24 14:23 71 05/30/24 14:18 100 05/30/24 14:18 84 05/30/24 14:17 78 05/30/24 14:17 110/58 L 05/30/24 14:13 100 05/30/24 14:13 76 05/30/24 14:08 100 05/30/24 14:08 71 05/30/24 14:04 36.7 C 20 05/30/24 14:03 98 05/30/24 14:03 89 05/30/24 14:03 109/59 L 05/30/24 13:58 100 05/30/24 13:58 71 05/30/24 13:53 100 05/30/24 13:53 82 05/30/24 13:49 71 05/30/24 13:49 111/58 L 05/30/24 13:48 100 05/30/24 13:48 67 05/30/24 13:43 100 05/30/24 13:43 74 05/30/24 13:38 100 05/30/24 13:38 81 05/30/24 13:33 100 05/30/24 13:33 73 05/30/24 13:33 75 05/30/24 13:33 110/61 05/30/24 13:28 100 05/30/24 13:28 82 05/30/24 13:24 75 05/30/24 13:24 115/55 L 05/30/24 13:23 100 05/30/24 13:23 77 05/30/24 13:18 100 05/30/24 13:18 77 05/30/24 13:13 100 05/30/24 13:13 75 05/30/24 13:08 100 05/30/24 13:08 72 05/30/24 13:03 100 05/30/24 13:03 80 05/30/24 13:02 72 05/30/24 13:02 36.7 C 16 115/59 L 05/30/24 12:58 100 05/30/24 12:58 78 05/30/24 12:53 100 05/30/24 12:53 73 05/30/24 12:48 100 05/30/24 12:48 69 05/30/24 12:48 75 05/30/24 12:48 118/55 L 05/30/24 12:43 99 05/30/24 12:43 68 05/30/24 12:38 100 05/30/24 12:38 73 05/30/24 12:33 100 05/30/24 12:33 79 05/30/24 12:33 113/55 L 05/30/24 12:30 20 05/30/24 12:30 20 05/30/24 12:30 20 05/30/24 12:30 20 05/30/24 12:28 100 05/30/24 12:28 82 05/30/24 12:23 100 05/30/24 12:23 84 05/30/24 12:18 100 05/30/24 12:18 80 05/30/24 12:18 98/52 L 05/30/24 12:13 100 05/30/24 12:13 81 05/30/24 12:08 100 05/30/24 12:08 82 05/30/24 12:04 77 05/30/24 12:04 36.8 C 16 115/61 05/30/24 12:03 100 05/30/24 12:03 77 05/30/24 11:58 100 05/30/24 11:58 89 05/30/24 11:53 100 05/30/24 11:53 75 05/30/24 11:48 100 05/30/24 11:48 75 05/30/24 11:48 92/58 L 05/30/24 11:43 99 05/30/24 11:43 84 05/30/24 11:38 100 05/30/24 11:38 103 H 05/30/24 11:33 98 05/30/24 11:33 102 H 05/30/24 11:32 91 H 05/30/24 11:32 101/63 05/30/24 11:30 91 H 05/30/24 11:30 101/59 L 05/30/24 11:28 100 05/30/24 11:28 103 H 05/30/24 11:28 105/59 L 05/30/24 11:26 100 H 05/30/24 11:26 110/61 05/30/24 11:25 87 05/30/24 11:25 114/62 05/30/24 11:23 100 05/30/24 11:23 100 H 05/30/24 11:22 90 05/30/24 11:22 112/59 L 05/30/24 11:20 90 05/30/24 11:20 121/59 L 05/30/24 11:18 100 05/30/24 11:18 87 05/30/24 11:13 100 05/30/24 11:13 82 05/30/24 11:08 99 05/30/24 11:08 84 05/30/24 11:08 85 05/30/24 11:08 37 C 20 119/69 05/30/24 10:06 77 05/30/24 10:06 114/73 05/30/24 09:51 64 05/30/24 09:51 118/67 05/30/24 09:35 82 05/30/24 09:35 111/70 05/30/24 09:21 82 05/30/24 09:21 115/76 05/30/24 09:07 78 05/30/24 09:07 113/72 09/02/24 08:50 76 05/30/24 08:50 16 108/59 L 05/30/24 07:37 36.6 C 85 20 124/75 Coding Level of Care Code None Diagnoses Encounter for supervision of normal in multigravida Z34.80
[2024-05-30] MEDS ORDERED: bisacodyL 10 MG SUPP PR PRN (17:09)
[2024-05-30] MEDS ORDERED: HYDROCORTISONE ACETATE 25 MG SUPP PR PRN (17:09)
--- NOTE | 2024-05-30 17:13 | Delivery Summary ---
Vaginal Delivery Summary Date of Service May 30, 2024 Vaginal Delivery Summary and 1st Degree LAC Progressed to 10 cm dilated 100% effaced +2 station pushed over intact perineum with epidural anesthesia and delivered a viable male with weight pending Apgars of 7 and 9 at 1 and 5 minutes respectively. Head delivered in ELMO position and was quickly followed by shoulders and body. was noted to have tone but not immediately vigorous. After about 15 seconds of stimulation and without spontaneous cry the cord was double clamped and cut and taken over the waiting nursery staff for evaluation. Cord blood was obtained. Attention was then turned to delivery of the placenta which delivered intact three-vessel cord with gentle cord traction. Inspection of perineum vagina cervix there is noted to be a right labial laceration which repaired with 3-0 Vicryl interrupted stitch. Needle sponge and instrument counts are correct at completion of the case both mother and stable immediate post delivery period. No complications noted and blood loss per QBL [facility] Vaginal Delivery Charge Delivery Type Details: and 1st Degree LAC
[2024-05-30] MEDS: ePHEDrine sulfate 50 MG/ML AMP ONE (17:48)
[2024-05-30] MEDS: BENZOCAINE 20% SPRY 85 APPLN/85 GM CAN EXT PRN (20:13)
[2024-05-30] MEDS: DOCUSATE SODIUM 100 MG CAP PO SCH (20:14)
[2024-05-30] MEDS: IBUPROFEN 600 MG TAB PO PRN (21:01)
[2024-05-30] MEDS: DIPHTHER/TETAN/PERTUS Vaccine (Tdap, Adol/Adult) 0.5mL IM ONE (22:12)
[2024-05-30] MEDS: SODIUM CHLORIDE 0.9% PF INJ 10 ML VIAL EPI STA (22:22)
[2024-05-30] MEDS: LIDOCAINE 2%/EPINEPHRINE 1:200,000 20 ML PF EPI STA (22:22)
[2024-05-30] MEDS: fentaNYL citrate PF 100 MCG/2 ML VIAL EPI STA (22:22)
[2024-05-30] MEDS: BUPIVACAINE 0.25% PF 30 ML VIAL EPI STA (22:22)
--- NOTE | 2024-05-31 06:43 | Anesthesia Procedure Note ---
Date of Service May 31, 2024 Anesthesia Post Epidural Note Vital Signs Vital Signs: Temp Pulse Resp BP Pulse Ox O2 Del Method 36.4 C L 89 18 112/71 98 Room Air 05/31/24 04:40 05/31/24 04:40 05/31/24 04:40 05/31/24 04:40 05/31/24 04:40 05/31/24 04:40 Pain Intensity Abdomen: Pain Intensity: 0 Notes Mental Status: alert / awake / arousable Nausea / Vomiting: adequately controlled Pain: adequately controlled Airway Patency, RR, SpO2: stable & adequate BP & HR: stable & adequate Hydration State: stable & adequate Neuraxial Anesthesia: was administered and sensory block is resolving Anesthetic Complications: no major complications apparent and Pt Satisfied with anesthetic care Epidural: Removed without complications and With tip intact
--- NOTE | 2024-05-31 06:59 | Obstetrical Progress Note ---
Date of Service May 31, 2024 Assessment & Plan (1) Encounter for supervision of normal in multigravida: Plan: Geno is a 28-year-old G3, P2 that delivered vaginally on 05/30/24 at 40 weeks 1 day gestational age after elective induction of labor. Vitals within normal limits. GBS negative. PPD #1. Tolerating regular diet without GI upset and voiding without issue. She is tolerating ambulation within her room and using Motrin for pain control. She is breast feeding without difficulty as she did with her first child. Hemoglobin is low, but vitals are stable. No current clinical signs or symptoms of post delivery complications. 1. Encourage ambulation outside of hospital room 2. Continue Motrin PRN for pain control 3. Continue regular diet 4. Monitor for BM and possible Colace or Miralax to assist with ease of passing first BM post delivery 5. Monitor for breast feeding needs, consult with program research specialist PRN Admission and Anticipated Discharge Date Admission Date: May 30, 2024 Supervising Physician Co-Signing Physician Notes Patient seen and agree with the above findings and plan. Stable for discharge as preferred Subjective Pt is a 28 yo female with without complications who presents s/p at 40w1d after elective IOL. She is PPD #2. Pt reports feeling well this morning with no pain at rest. With movement, pt state abdominal and bilateral arm pain is 4-5/10. Pt has been walking throughout her room, but has not walked in hallways. She has had several episodes of voiding without pain or hesitation. She has not had a a BM, but is passing gas. Pt is eating a regular diet without c/o nausea or vomiting. Pt is breast feeding her baby. Pt described lochia at bloody without clots. Pt denies fever chills, chest pain, palpitations, SOB, breast pain/discharge, UTI symptoms, or headache Review of Systems Review of Systems: As per HPI Physical Exam Respiratory: normal respiratory effort Auscultation: lungs clear to auscultation bilaterally Cardiovascular: Rate/Rhythm: regular rate and regular rhythm Heart Sounds: no gallop and no murmur Extremities: no calf tenderness, no pedal edema and no edema Gastrointestinal (Abdomen): normal bowel sounds, soft, nontender, no hepatosplenomegaly Psychiatric: Orientation: alert Genitourinary: no external tenderness OB Exam Abdomen: + fundal height (firm and below umbilicus) Results & Data Vital Signs (Past 12 Hours) Vital Signs Temp Pulse Pulse Resp BP BP Pulse Ox 05/31/24 04:40 36.4 C L 89 18 112/71 98 05/31/24 04:40 05/30/24 23:40 36.9 C 80 16 123/69 05/30/24 19:31 36.6 C 88 16 128/81 98 05/30/24 19:17 85 05/30/24 19:17 129/78 05/30/24 19:03 112 H 05/30/24 19:03 129/75 O2 Del Method 05/31/24 04:40 Room Air 05/31/24 04:40 Room Air 05/30/24 23:40 05/30/24 19:31 Room Air 05/30/24 19:17 05/30/24 19:17 05/30/24 19:03 05/30/24 19:03 Laboratory Results 05/30/24 Range/Units 07:56 WBC 8.88 (4.8-10.8) K/ul RBC 3.85 L (4.20-5.40) M/uL Hgb 11.9 L (12.0-16.0) g/dl Hct 34.4 L (37.0-47.0) % MCV 89.4 (80.0-100.0) fL MCH 30.9 (25.0-34.0) pg MCHC 34.6 (32.0-36.0) g/dL RDW Std Deviation 43.0 (36.4-46.3) fL RDW Coeff of Desiree 13.2 (11.5-14.5) % Plt Count 171 (130-400) K/uL MPV 10.6 (9.4-12.4) fL Treponema pallidum Ab Negative (Negative)
[2024-05-31] MEDS: PRENATAL VITAMIN 1 TAB PO SCH (09:04)
[2024-05-31] MEDS: FERROUS SULFATE 325 MG TAB PO SCH (09:04)
[2024-05-31] MEDS: ACETAMINOPHEN 325 MG TAB PO PRN (09:06)
[2024-05-31 11:38] VITALS: RESP 18; O2SAT 98
[2024-05-31 16:27] VITALS: BP 122/77; PULSE 85; TEMP 98.1
[2024-05-31] MEDS ORDERED: bisacodyL 5 MG TABEC PO SCH (20:00)
== END 2024-05-31 18:46 | disposition home or self-care (01) | DRG 807 ==
LOC: 4S1 07:30 → 4E2 19:36